=== PATIENT | female | born 1955 | race Two or more races ===

== ENCOUNTER 2017-07-09 22:25 | Emergency (ER) | payer OTHER ==
[2017-07-09] MEDS ORDERED: NITROGLYCERIN (SL) 0.4 MG TAB SL (23:00)
[2017-07-09] MEDS: LABETALOL HCL 20MG INJ IV (23:04)
[2017-07-09 23:41] LABS: ADD MAN DIFF? NO
[2017-07-09 23:42] LABS: WHITE BLOOD COUNT 6.5 10^3/ul (4.8-10.8)
[2017-07-09 23:42] LABS: BASOPHILS % 0.5 % (0.0-2.0); EOSINOPHILS # 0.1 10^3/ul (0.0-0.5); EOSINOPHILS % 2.2 % (0.0-7.0); HEMATOCRIT 39.5 % (37.0-47.0); HEMOGLOBIN 13.2 g/dl (12.0-16.0); LYMPHOCYTES # 2.6 10^3/ul (0.8-2.9); LYMPHOCYTES % 39.5 % (15.0-51.0); MEAN CORPUSCULAR HEMOGLOBIN 30.7 pg (29.0-33.0); MEAN CORPUSCULAR HGB CONC 33.4 g/dl (32.0-37.0); MEAN CORPUSCULAR VOLUME 91.9 fl (82.0-101.0); MEAN PLATELET VOLUME 9.6 fl (7.4-10.4); MONOCYTE # 0.6 10^3/ul (0.3-0.9); MONOCYTES % 8.8 % (0.0-11.0); NEUTROPHIL # 3.2 10^3/ul (1.6-7.5); NEUTROPHILS % 48.8 % (39.0-77.0); PLATELET COUNT 304 10^3/UL (140-415); RED CELL DISTRIBUTION WIDTH 12.8 % (11.5-14.5)
[2017-07-09] MEDS: ACETAMINOPHEN 500 MG TAB PO (23:46)
[2017-07-10 00:02] LABS: ANION GAP 16 (8-16); BLOOD UREA NITROGEN 21 mg/dl (7-20); CALCIUM 9.9 mg/dl (8.4-10.2); CARBON DIOXIDE 28 mmol/L (21-31); CHLORIDE 105 mmol/L (97-110); CREATININE 0.91 mg/dl (0.44-1.00); GLUCOSE 120 mg/dl (70-220); POTASSIUM 3.4 mmol/L (3.5-5.1); SODIUM 146 mmol/L (135-144)
[2017-07-10 00:14] LABS: B-TYPE NATRIURETIC PEPTIDE 175 PG/ML (0-125)
[2017-07-10 00:21] LABS: TROPONIN-I < 0.012 ng/ml (0.00-0.12)
[2017-07-10 03:03] LABS: TROPONIN-I < 0.012 ng/ml (0.00-0.12)
[2017-07-10] MEDS: POTASSIUM CHLORIDE (SR) 20 MEQ TAB PO (03:56)
== END 2017-07-10 04:11 | disposition home or self-care (01) ==
LOC: E/R 07-10 04:11
DX: R07.9 Chest pain, unspecified (principal); I16.1 Hypertensive emergency; I10 Essential (primary) hypertension; R79.89 Other specified abnormal findings of blood chemistry
CPT/HCPCS: 36415; 71045; 80048; 83880; 84484; 85025; 93005; 96374; 99291-25